=== PATIENT | female | born 1960 | race Caucasian/White ===

== ENCOUNTER 2021-12-19 07:24 | Day surgery (SDC) | payer OTHER ==
[~2021-12-19] VITALS: Ht 154.9 cm; Wt 86.5 kg
[~2021-12-19 07:24] MED LIST: BUPROPION XL300 MG PO; OMEPRAZOLE20 MG PO
[2021-12-19] MEDS ORDERED: TOPIRAMATE50 MG PO (07:48)
[2021-12-19] MEDS ORDERED: TOPIRAMATE25 MG PO (07:48)
--- NOTE | 2021-12-19 08:21 | NUR ---
CONNECTED WITH PT AND HER BEFORE RN CAME TO START PREP. ENCOURAGEMENT GIVEN AND BLESSING. PT ACKNOWLEDGED, WILL FOLLOW NEEDED
--- NOTE | 2021-12-19 08:48 | NUR ---
12/19/21 0848 Isaura Clark 0807- PT ARRIVES TO PACU REACTIVE TO VERBAL STIMULI. PT FALLS INSTANTLY BACK TO SLEEP WHEN NOT BEING STIMULATED. RESP EVEN AND UNLABORED. OXYGEN SAT HIGH 90'S ON 2L VIA CO2 NC.
--- NOTE | 2021-12-20 08:08 | OR ---
[facility] [address], [place] [address] Signed DATE OF OPERATION: 12/19/2021 SURGEON: Mir Stiles MD PREOPERATIVE DIAGNOSIS: History of gastric sleeve resection (five years ago). POSTOPERATIVE DIAGNOSES: Distal ulcerative esophagitis with marginal flap valve. PROCEDURE: Esophagogastroduodenoscopy with biopsy. ANESTHESIA: Intravenous sedation; fentanyl 100 mcg and Versed 4 mg. INDICATION: This 61-year-old white woman is a patient of Dr. Kashif Benedict and underwent gastric sleeve resection for obesity five years ago. She lost about 50 pounds in aggregate. She is now 190 pounds and is comfortable with her weight. She was recommended to have upper endoscopy for surveillance by her primary provider. She is having no dysphagia, hematemesis or problem eating. She has no family history of esophageal or stomach cancer. She does take omeprazole on a routine basis as well as various supplements. She understands the risk of bleeding, infection, and perforation related to upper endoscopy and wished to proceed. FINDINGS: She did have a linear ulcerative esophagitis. This was not severe but was definitely present. The flap valve was rather poor, but no large hiatal hernia was noted. CLOtest was negative. The anatomy of the stomach was typical of that of gastric sleeve resection otherwise. DESCRIPTION OF PROCEDURE: The patient was brought to the endoscopy suite and given topical lidocaine hypopharyngeal anesthesia, placed in lateral decubitus position, given intravenous sedation to the point of slurred speech and nystagmus. Full cardiopulmonary monitoring was maintained. An Olympus video upper endoscope was passed in the hypopharynx. The vocal cords were normal. The scope was advanced to the esophagus which in the distal portion had a linear ulcerated area. It was not acute nor was it deep or in any way suggestive of malignancy or Mcintyre's epithelium. The scope was passed to the stomach, Electronically Signed By: MIR STILES MD 12/20/21 0808 PATIENT NAME: CAILIN KATHLEEN OPERATIVE REPORT DATE OF : 62 REPORT #: [id number] PHYSICIAN: MIR STILES MD PCP: KASHIF BENEDICT MD REPORT IS CONFIDENTIAL AND NOT TO BE RELEASED WITHOUT AUTHORIZATION [facility] [address], [place] [address] Signed which was insufflated with air. The tubular configuration of the stomach was acknowledged as normal for her postsurgical state. The pylorus was normal. Scope was passed through into the duodenum. The duodenum appeared normal, it was biopsied. The scope was withdrawn and biopsies taken of the antrum for both SPENSER and pathologic testing. Retroflexed view was able to be undertaken showing a poor flap valve, but no sign of large hiatal hernia proper. The scope was withdrawn to the distal esophagus and biopsies were taken of the ulcerated area. Further withdrawal of the scope showed no other abnormality. She was taken to the recovery room in good condition having suffered no complication following the procedure. CONCLUSION DIAGNOSIS: Distal ulcerative esophagitis with poor flap valve. PLAN: We would recommend continued use of PPI medication. If she should develop symptoms of dysphagia or pain, she will let me know and further evaluation and treatment may be altered. Mir Stiles MD JM/MODL /[id number] cc: Kashif Benedict MD Copies: KASHIF BENEDICT MD ~ Electronically Signed By: MIR STILES MD 12/20/21 0808 PATIENT NAME: CAILIN KATHLEEN OPERATIVE REPORT DATE OF : 62 REPORT #: [id number] PHYSICIAN: MIR STILES MD PCP: KASHIF BENEDICT MD REPORT IS CONFIDENTIAL AND NOT TO BE RELEASED WITHOUT AUTHORIZATION
--- NOTE | 2021-12-20 17:43 | PATH ---
[facility] [address] [place], [place] [address] Signed SPECIMEN(S): A DUODENAL BIOPSY SPECIMEN(S): B ANTRUM/PYLORUS BIOPSY SPECIMEN(S): C LOWER ESOPHAGEAL BIOPSY SPECIMEN SOURCE: A. DUODENAL BIOPSY B. ANTRUM/PYLORUS BIOPSY C. LOWER ESOPHAGEAL BIOPSY CLINICAL HISTORY: EGD. FINAL PATHOLOGIC DIAGNOSIS: A. Duodenum, biopsy: - Duodenal mucosa with no histopathologic abnormality. - Negative for increased intraepithelial lymphocytes or villous blunting. - Negative for dysplasia or malignancy. B. Stomach, antrum/pylorus, biopsy: - Antral mucosa with minimal chronic, inactive gastritis. - Negative for Helicobacter organisms on HE stain. - Negative for dysplasia or malignancy. C. Esophagus, lower, biopsy: - Reflux esophagitis. - Negative for intestinal metaplasia, dysplasia, or malignancy. NAL:cml:C2NR MICROSCOPIC EXAMINATION: Histologic sections of all submitted blocks are examined by light microscopy. These findings, together with the gross examination, support the pathologic diagnosis. GROSS DESCRIPTION: Three specimens are received in three containers, labeled "SK." A. The specimen, labeled "SK, duodenum biopsy," is received in formalin and consists of two dominguez soft tissue fragments that measure 0.1 cm in greatest dimension. The specimen is entirely submitted in cassette (A1). B. The specimen, labeled "SK, antrum biopsy," is received in formalin and consists of two dominguez soft tissue fragments that measure 0.2 cm in greatest dimension. The specimen is entirely submitted in cassette (B1). PATIENT NAME: CAILIN KATHLEEN PATHOLOGY DATE OF : 62 REPORT #: [id number] PHYSICIAN: BEBA PATHOLOGY PCP: KASHIF LEUNG MD REPORT IS CONFIDENTIAL AND NOT TO BE RELEASED WITHOUT AUTHORIZATION [facility] [address] [place] [id number] Signed C. The specimen, labeled "SK, lower esophagus biopsy," is received in formalin and consists of four dominguez soft tissue fragments that measure 0.1-0.2 cm in greatest dimension. The specimen is entirely submitted in cassette (C1). JS (under the direct supervision of a pathologist) The Gross Description was prepared using a voice recognition system. The report was reviewed for accuracy; however, sound-alike word errors, addition and/or deletions may occur. If there is any question about this report, please contact Client Services. PERFORMING LABORATORY: The technical component was performed by [facility] [address] (CLIA# [id number]). [facility] [address] [place] [id number] (CLIA# [id number]). Diagnostician: Kaylin Jc MD Pathologist Electronically Signed 12/20/2021 Copies: ~ PATIENT NAME: CAILIN KATHLEEN PATHOLOGY DATE OF : 62 REPORT #: [id number] PHYSICIAN: BEBA WILCOX PCP: KASHIF LEUNG MD REPORT IS CONFIDENTIAL AND NOT TO BE RELEASED WITHOUT AUTHORIZATION
== END 2021-12-19 09:36 | disposition home or self-care (01) ==
LOC: DS 07:24 → OPS 07:24 → DS 08:30 → OPS 08:30 → DS 12-26 14:00
PROVIDERS: ATTEND Surgery
PROC: 0DB68ZX Excision of Stomach, Via Natural or Artificial Opening Endoscopic, Diagnostic (ICD-10-PCS; 2021-12-19)
PROC: 0DB38ZX Excision of Lower Esophagus, Via Natural or Artificial Opening Endoscopic, Diagnostic (ICD-10-PCS; principal; 2021-12-19 08:30)
DX: K21.00 Gastro-esophageal reflux disease with esophagitis, without bleeding (principal); K29.50 Unspecified chronic gastritis without bleeding; K30 Functional dyspepsia; F41.9 Anxiety disorder, unspecified; Z98.84 Bariatric surgery status; Z91.048 Other nonmedicinal substance allergy status; Z20.822 Contact with and (suspected) exposure to COVID-19
CPT/HCPCS: 99153; G0500; J2250; J3010; J7121